=== PATIENT | male | born 1980 | race African-American/Black ===

== ENCOUNTER → 2017-05-06 | Outpatient (CLI) | payer OTHER | END | disposition home or self-care (01) | LOC: RAD 08:00 | DX: R56.9 Unspecified convulsions (principal); S06.9X0S Unspecified intracranial injury without loss of consciousness, sequela | CPT/HCPCS: 70450 ==

== ENCOUNTER → 2017-06-03 | Outpatient (CLI) | payer OTHER | END | disposition designated cancer center or children's hospital (05) | LOC: RAD 05-29 11:00 → MRI 05-29 11:00 | DX: G93.89 Other specified disorders of brain (principal); G31.1 Senile degeneration of brain, not elsewhere classified; R94.01 Abnormal electroencephalogram [EEG] | CPT/HCPCS: 70551; 95819 ==